=== PATIENT | male | born 2000 | race Caucasian/White ===

== ENCOUNTER 2024-08-08 16:19 | Emergency (ER) | payer MEDICAID ==
[~2024-08-08] VITALS: Ht 172.7 cm; Wt 81.8 kg
[2024-08-08 16:37] VITALS: TEMP 98.4
[2024-08-08] MEDS: LIDOCAINE 1% 10 ML VIAL ID ONE (19:13)
[2024-08-08] MEDS: CEPHALEXIN MONOHYDRATE 500 MG CAPSULE PO ONE (19:13)
[2024-08-08] MEDS: POVIDONE-IODINE 10% 15 ML SOLUTION UD TP ONE (19:14)
[2024-08-08] MEDS ORDERED: IBUP-1492 PO (19:29)
[2024-08-08] MEDS ORDERED: CEPH-558 PO (19:29)
[2024-08-08 19:42] VITALS: BP 123/79; PULSE 98; RESP 16; O2SAT 98
== END 2024-08-08 19:43 | disposition home or self-care (01) ==
LOC: EMS 16:22
DX: L02.811 Cutaneous abscess of head [any part, except face] (principal)
CPT/HCPCS: 99283; 10060; J3490; A4247